=== PATIENT | male | born 1965 | race Caucasian/White ===

== ENCOUNTER 2017-09-21 12:23 | Inpatient (IN) | payer MEDICAID ==
--- NOTE | 2017-09-21 14:59 | C.PDOC ---
History Of Present Illness 52 year old male with PMHx of DM, HTN and kidney transplant presents to the ED for evaluation of left lower leg pain and redness for the past 2 months. Patient was started on clindamycin by his PMD a week ago. Patient saw him today with no improvement of his pain. Patient is immunocompromised due to his kidney transplant, patient was sent here by Dr. Leyva for IV antibiotics with plans for an I&D. Time Seen by Provider: 09/21/17 14:27 Chief Complaint (Nursing): Abnormal Skin Integrity History Per: Patient History/Exam Limitations: no limitations Onset/Duration Of Symptoms: Days Current Symptoms Are (Timing): Still Present Location Of Injury: Left: Leg (lower) Quality Of Symptoms: Other (erythema) Recent travel outside of the [place]: No Additional History Per: Patient Past Medical History Reviewed: Historical Data, Nursing Documentation, Vital Signs Vital Signs: Last Vital Signs Temp 98.4 F 09/21/17 13:04 Pulse 70 09/21/17 13:04 Resp 20 09/21/17 13:04 BP 155/79 H 09/21/17 13:04 Pulse Ox 98 09/21/17 15:03 - Medical History PMH: Diabetes, HTN Other Surgeries: Kidney transplant Family History: States: Unknown Family Hx - Social History Hx Tobacco Use: No Hx Alcohol Use: No Hx Substance Use: No - Immunization History Hx Tetanus Toxoid Vaccination: No Hx Influenza Vaccination: Yes Hx Pneumococcal Vaccination: Yes Review Of Systems Constitutional: Negative for: Fever, Chills Cardiovascular: Negative for: Chest Pain, Palpitations Respiratory: Negative for: Cough, Shortness of Breath Gastrointestinal: Negative for: Nausea, Vomiting, Abdominal Pain Musculoskeletal: Positive for: Leg Pain Skin: Negative for: Rash Neurological: Negative for: Weakness, Numbness Physical Exam - Physical Exam Appears: Non-toxic, No Acute Distress Skin: Normal Color, Warm, Dry Head: Atraumatic, Normacephalic Eye(s): bilateral: Normal Inspection Nose: No Discharge, No Deformity Oral Mucosa: Moist Neck: Normal ROM, Supple Chest: Symmetrical Cardiovascular: Rhythm Regular, No Murmur Respiratory: Normal Breath Sounds, No Rales, No Rhonchi, No Wheezing Gastrointestinal/Abdominal: Soft, No Tenderness, No Guarding, No Rebound Extremity: Normal ROM, Tenderness (mild, left lower ), No Pedal Edema, No Calf Tenderness, No Deformity, No Swelling, Other (left lower leg are erythema, superficial flaking skin, no swelling, no fluctuance, no abscess) Neurological/Psych: Oriented x3, Normal Speech, Normal Cognition Gait: Steady ED Course And Treatment O2 Sat by Pulse Oximetry: 98 (On RA) Pulse Ox Interpretation: Normal - Physician Consult Information Physician Contacted: Jason Doherty Outcome Of Conversation: Patient to be admitted to his service Medical Decision Making Medical Decision Making: Impression : left lower leg pain Plan: * Labs * Ancef IVPB Disposition - Disposition Disposition: HOSPITALIZED Disposition Time: 15:30 Condition: STABLE - POA Present On Arrival: None - Clinical Impression Clinical Impression: Cellulitis - Scribe Statement The provider has reviewed the documentation as recorded by the Scribe Gilmer Golden All medical record entries made by the Scribe were at my direction and personally dictated by me. I have reviewed the chart and agree that the record accurately reflects my personal performance of the history, physical exam, medical decision making, and the department course for this patient. I have also personally directed, reviewed, and agree with the discharge instructions and disposition.
[2017-09-21 15:24] LABS: BASO # 0.1 K/uL (0.0-0.2); BASO % 0.5 % (0.0-2.0); EOS # 0.3 K/uL (0.0-0.7); EOS % 2.4 % (0.0-4.0); HEMOGLOBIN 14.6 g/dL (12.0-18.0); LYMPH # 1.9 K/uL (1.0-4.3); LYMPH % 16.1 % (20.0-40.0); MEAN CELL VOLUME 87.6 fL (80.0-94.0); MEAN CORPUSCULAR HEMOGLOBIN 29.2 pg (27.0-31.0); MEAN CORPUSCULAR HGB CONC 33.4 g/dL (33.0-37.0); MEAN PLATELET VOLUME 10.6 fL (7.2-11.7); MONO # 0.6 K/uL (0.0-0.8); MONO % 4.8 % (0.0-10.0); NEUT # 9.2 K/uL (1.8-7.0); NEUT % 76.2 % (50.0-75.0); RBC 4.98 Mil/uL (4.40-5.90); RED CELL DISTRIBUTION WIDTH 14.6 % (11.5-14.5); WHITE BLOOD COUNT 12.1 K/uL (4.8-10.8)
[2017-09-21] MEDS ORDERED: ceFAZolin 1 GM in Sodium Chloride 0.9% 100 ML IVPB ONE (16:00)
[2017-09-21] MEDS: (Novolog) Insulin Aspart, Recombinant 100 u/ml 10 ml vial SC SCH (22:40)
[2017-09-22] MEDS: Cilostazol 100 mg Tab UD PO SCH ×4 (00:06→17:34)
[2017-09-22] MEDS: ceFAZolin IV 1 gm in Dextrose 1 GM/50 ML BAG IVPB SCH ×3 (01:37→17:33)
[2017-09-22 07:57] LABS: PROTHROMBIN TIME 11.7 SECONDS (9.7-12.2)
[2017-09-22 08:02] LABS: BASO % 0.4 % (0.0-2.0); EOS # 0.2 K/uL (0.0-0.7); EOS % 2.4 % (0.0-4.0); HEMOGLOBIN 13.5 g/dL (12.0-18.0); LYMPH # 1.9 K/uL (1.0-4.3); LYMPH % 21.5 % (20.0-40.0); MEAN CELL VOLUME 87.1 fL (80.0-94.0); MEAN CORPUSCULAR HEMOGLOBIN 29.7 pg (27.0-31.0); MEAN CORPUSCULAR HGB CONC 34.1 g/dL (33.0-37.0); MEAN PLATELET VOLUME 10.8 fL (7.2-11.7); MONO # 0.6 K/uL (0.0-0.8); MONO % 6.8 % (0.0-10.0); NEUT # 6.2 K/uL (1.8-7.0); NEUT % 68.9 % (50.0-75.0); RBC 4.53 Mil/uL (4.40-5.90); RED CELL DISTRIBUTION WIDTH 14.3 % (11.5-14.5)
[2017-09-22 08:05] LABS: ALB/GLOB RATIO 1.1 (1.0-2.1); ALBUMIN 3.6 g/dL (3.5-5.0); ALT/SGPT 32 U/L (21-72); AST/SGOT 17 U/L (17-59); BLOOD UREA NITROGEN 24 mg/dL (9-20); CALCIUM 8.8 mg/dl (8.6-10.4); GFR AFRICAN-AMERICAN > 60; GFR NON-AFRICAN AMERICAN > 60; MAGNESIUM 1.6 mg/dL (1.6-2.3)
[2017-09-22] MEDS: (Novolog) Insulin Aspart, Recombinant 100 u/ml 10 ml vial SC SCH ×7 (08:22→22:08)
--- NOTE | 2017-09-22 09:15 | RAD ---
Chest x-ray single frontal view History: Preoperative evaluation. Comparison: 02/02/2012 Findings: No focal infiltrate. Mild blunting of the left costophrenic angle may represent mild pleural thickening. Clinical correlation. Stable right hilar prominence. Tortuous aorta. Top normal heart size. Degenerative changes in the spine and shoulders. Impression No focal infiltrate.
[2017-09-22] MEDS ORDERED: (Lantus) Insulin Glargine, Recombinant SC SCH (10:00)
[2017-09-22] MEDS ORDERED: Patient's Own Medication - Tablet/Capusle PO SCH (10:00)
[2017-09-22] MEDS ORDERED: LIRAGLUTIDE 6 UNIT SC SCH (10:00)
[2017-09-22] MEDS ORDERED: Midazolam 2 MG/2 ML VIAL ONE ×2 (10:02→10:18)
[2017-09-22] MEDS ORDERED: Propofol 10 mg/ml Inj (20 ML) ONE (10:03)
[2017-09-22] MEDS: (Lantus) Insulin Glargine, Recombinant SC SCH ×2 (10:16→22:07)
[2017-09-22] MEDS ORDERED: Lidocaine 1% Inj (20ml) ONE (10:18)
[2017-09-22] MEDS ORDERED: HYDROmorphone 0.5 mg/0.5 ml ISec IVP PRN (10:34)
[2017-09-22] MEDS ORDERED: Lactated Ringer's 1,000 ML IV ONE (10:34)
[2017-09-22] MEDS: Tramadol 25 mg PO PRN ×2 (14:26→20:24)
[2017-09-22 17:25] VITALS: RESP 20
--- NOTE | 2017-09-22 19:26 | CP.PCM.PN ---
Subjective - Date & Time of Evaluation Date of Evaluation: 09/22/17 Time of Evaluation: 08:00 - Subjective Subjective: PGY [address] Gomez: Patient was seen and examined at bedside this morning. Patient with cellulitis of the left leg associated with pain, swelling and redness. He is due for the OR today for I/D. Patient failed outpatient treatment with PO clindamycin. Consult was placed for medical management. Patient with a past medical history of diabetes, hypertension, and kidney transplant. Patient denies fever/chills, chest pain, palpitation, abdominal pain, shortness of breath, N/V. Objective - Vital Signs/Intake and Output Vital Signs (last 24 hours): Temp Pulse Resp BP Pulse Ox 98.3 F 66 20 117/68 96 09/22/17 16:00 09/22/17 16:00 09/22/17 16:00 09/22/17 16:00 09/22/17 16:00 Intake and Output: 09/22/17 09/23/17 18:59 06:59 Intake Total 100 Balance 100 - Medications Medications: Current Medications Aspirin (Ecotrin) 81 mg PO DAILY [facility] Cilostazol (Pletal) 100 mg PO BID [facility] Last Admin: 09/22/17 17:34 Dose: 100 mg Clonidine HCl (Catapres) 0.1 mg PO DAILY [facility] Last Admin: 09/22/17 12:38 Dose: 0.1 mg Clonidine HCl (Catapres) 0.2 mg PO HS [facility] Last Admin: 09/22/17 00:31 Dose: 0.2 mg Clopidogrel Bisulfate (Plavix) 75 mg PO DAILY [facility] Last Admin: 09/22/17 12:38 Dose: 75 mg Docusate Sodium (Colace) 100 mg PO DAILY [facility] Last Admin: 09/22/17 10:16 Dose: Not Given Gabapentin (Neurontin) 300 mg PO BID [facility] Last Admin: 09/22/17 17:34 Dose: 300 mg Home Med (Liraglutide [Victoza 2-Jt]) 6 unit SC QAM [facility] Home Med (Patient's Own Medication) 360 tab PO BID [facility] Cefazolin Sodium/Dextrose (Ancef Iv 1 Gm Duplex) 1 gm in 50 mls @ 100 mls/hr IVPB Q8H [facility] Last Admin: 09/22/17 17:33 Dose: 100 mls/hr Insulin Aspart (Novolog) 0 unit SC ACHS [facility] PRN Reason: Protocol Last Admin: 09/22/17 17:46 Dose: Not Given Insulin Aspart (Novolog) 35 unit SC TID [facility] Last Admin: 09/22/17 17:47 Dose: Not Given Insulin Glargine (Lantus) 50 unit SC Q12 [facility] Last Admin: 09/22/17 10:16 Dose: Not Given Lisinopril (Zestril) 5 mg PO DAILY [facility] Last Admin: 09/22/17 12:38 Dose: 5 mg Metoprolol Tartrate (Lopressor) 100 mg PO DAILY [facility] Last Admin: 09/22/17 12:38 Dose: 100 mg Oxybutynin Chloride (Ditropan Tab) 5 mg PO DAILY [facility] Last Admin: 09/22/17 12:41 Dose: 5 mg Prednisone (Prednisone Tab) 5 mg PO DAILY [facility] Last Admin: 09/22/17 12:40 Dose: 5 mg Rosuvastatin Calcium (Crestor) 10 mg PO [facility] Tacrolimus (Prograf Cap) 2.5 mg PO BID [facility] Last Admin: 09/22/17 12:43 Dose: 2.5 mg Tamsulosin HCl (Flomax) 0.4 mg PO DAILY [facility] Last Admin: 09/22/17 10:16 Dose: Not Given Tramadol HCl (Ultram) 25 mg PO Q6H PRN PRN Reason: Pain, moderate (4-7) Last Admin: 09/22/17 14:26 Dose: 25 mg - Labs Labs: 09/22/17 07:56 09/22/17 07:34 PT 11.7 SECONDS (9.7-12.2) 09/22/17 07:34 INR 1.0 09/22/17 07:34 APTT 31 SECONDS (21-34) 09/22/17 07:34 - Constitutional Appears: Non-toxic, No Acute Distress - Head Exam Head Exam: ATRAUMATIC, NORMAL INSPECTION - Eye Exam Eye Exam: EOMI Pupil Exam: NORMAL ACCOMODATION - ENT Exam ENT Exam: Mucous Membranes Moist - Neck Exam Neck Exam: Normal Inspection - Respiratory Exam Respiratory Exam: Clear to Ausculation Bilateral, NORMAL BREATHING PATTERN - Cardiovascular Exam Cardiovascular Exam: REGULAR RHYTHM, +S1, +S2 - GI/Abdominal Exam GI & Abdominal Exam: Soft, Normal Bowel Sounds. absent: Distended, Firm, Guarding, Tenderness - Extremities Exam Extremities Exam: Tenderness. absent: Calf Tenderness Additional comments: mild left lower leg, erythema - Back Exam Back Exam: absent: CVA tenderness (L), CVA tenderness (R), paraspinal tenderness - Neurological Exam Neurological Exam: Alert, Awake, CN II-XII Intact, Oriented x3 Neuro motor strength exam: Left Upper Extremity: 5, Right Upper Extremity: 5, Left Lower Extremity: 5, Right Lower Extremity: 5 - Psychiatric Exam Psychiatric exam: Normal Affect, Normal Mood - Skin Skin Exam: Dry, Intact Assessment and Plan - Assessment and Plan (Free Text) Assessment: mihaitis Managment per Dr. Doherty Ancef 1gram IVPB q8 hours Tramadol 25mg PO Q6 prn main For OR today for I/D Diabetes Neurontin 300mg PO BID Lantus 50 U SC Q12 Novolog 35 U SC TID ISS hypoglycemia protocol Accuchecks ACHS Crestor 10mg PO HS Hypertension Lopressor 100mg PO daily monitor CAD/PVD Aspirin 8mg PO daily Pletal 100mg PO BID Plavix 75 mg PO daily s/p Renal Transplant Prograf 2.5 mg PO BID Prednisone 5mg PO daily avoid nephrotoxic medications Urinary retention Flomax 0.4 mg PO Daily Prophylactic measures SCD on right leg no chemical anticoagulation - management per surgery, for OR today NPO f/u am labs Discusssed with Dr. Gomez. All management and order per Dr. Gomez.
[2017-09-22] MEDS ORDERED: Dextrose 50% SYRINGE Inj (50 ml) IV PRN (19:35)
[2017-09-22] MEDS ORDERED: Glucagon Recombinant 1 mg Inj IM PRN (19:35)
--- NOTE | 2017-09-22 20:49 | OP ---
PROCEDURE DATE: 09/22/2017 PREOPERATIVE DIAGNOSIS: Abscess of the left lower extremity. POSTOPERATIVE DIAGNOSIS: Abscess of the left lower extremity. PROCEDURE PERFORMED: Incision and drainage of abscess of the left lower extremity with debridement. SURGEON: Jason Doherty MD. ANESTHESIA: General. ESTIMATED BLOOD LOSS: 40 mL. POSTOPERATIVE CONDITION: Stable. INDICATIONS FOR SURGERY: This 52-year-old male presents with cellulitis and abscess of the left leg. He was taken to the OR today for drainage. DESCRIPTION OF PROCEDURE: The patient was taken to the operating room, IV sedation was administered and the left leg was prepped and draped. Local anesthesia was infiltrated widely. An incision was made into the abscess cavity in the tibial region. The cavity was opened and explored. Bleeding was controlled using the Bovie and a larger blood vessel was repaired. The wound was irrigated with saline solution after cultures were taken. Partial tissue flap closure was performed. The central portion of the wound was packed open with saline gauze. The patient tolerated the procedure well. Returned to the recovery in stable condition. Jason Doherty MD
[2017-09-22] MEDS ORDERED: Oxycodone/Acetaminophen 5/325 mg Tab PO PRN (22:19)
[2017-09-23] MEDS: ceFAZolin IV 1 gm in Dextrose 1 GM/50 ML BAG IVPB SCH ×3 (00:50→17:38)
--- NOTE | 2017-09-23 07:28 | CP.PCM.PN ---
Subjective - Date & Time of Evaluation Date of Evaluation: 09/23/17 Time of Evaluation: 07:23 - Subjective Subjective: PGY [address] Gomez: Patient was seen and examined at bedside this morning. Nursing reports no acute events overnight. Patient states he is only in pain when he walks, but he has not needed his pain medications so far. He admits tolerating diet, denies fever/ chills, chest pain, palpitation, abdominal pain, shortness of breath, N/V. Objective - Vital Signs/Intake and Output Vital Signs (last 24 hours): Temp Pulse Resp BP Pulse Ox 98 F 70 20 139/67 96 09/22/17 23:47 09/22/17 23:47 09/22/17 23:47 09/22/17 23:47 09/22/17 23:47 Intake and Output: 09/23/17 09/23/17 06:59 18:59 Intake Total 450 Output Total 650 Balance -200 - Medications Medications: Current Medications Aspirin (Ecotrin) 81 mg PO DAILY [facility] Last Admin: 09/22/17 22:07 Dose: 81 mg Cilostazol (Pletal) 100 mg PO BID [facility] Last Admin: 09/22/17 17:34 Dose: 100 mg Clonidine HCl (Catapres) 0.1 mg PO DAILY [facility] Last Admin: 09/22/17 12:38 Dose: 0.1 mg Clonidine HCl (Catapres) 0.2 mg PO HS [facility] Last Admin: 09/22/17 22:07 Dose: 0.2 mg Clopidogrel Bisulfate (Plavix) 75 mg PO DAILY [facility] Last Admin: 09/22/17 12:38 Dose: 75 mg Dextrose (Dextrose 50% Inj) 0 ml IV STAT PRN; Protocol PRN Reason: Hypoglycemia Protocol Dextrose (Glutose 15) 0 gm PO ONCE PRN; Protocol PRN Reason: Hypoglycemia Protocol Docusate Sodium (Colace) 100 mg PO DAILY [facility] Last Admin: 09/22/17 10:16 Dose: Not Given Gabapentin (Neurontin) 300 mg PO BID [facility] Last Admin: 09/22/17 17:34 Dose: 300 mg Glucagon (Glucagen Diagnostic Kit) 0 mg IM STAT PRN; Protocol PRN Reason: Hypoglycemia Protocol Heparin Sodium (Porcine) (Heparin) 5,000 units SC Q12 [facility] Last Admin: 09/22/17 23:04 Dose: 5,000 units Home Med (Liraglutide [Victoza 2-Jt]) 6 unit SC QAM [facility] Home Med (Patient's Own Medication) 360 tab PO BID [facility] Cefazolin Sodium/Dextrose (Ancef Iv 1 Gm Duplex) 1 gm in 50 mls @ 100 mls/hr IVPB Q8H [facility] Last Admin: 09/23/17 00:50 Dose: 100 mls/hr Dextrose (Dextrose 5% In Water 1000 Ml) 1,000 mls @ 0 mls/hr IV .Q0M PRN; Protocol; Per Protocol PRN Reason: Hypoglycemia Protocol Insulin Aspart (Novolog) 0 unit SC ACHS [facility] PRN Reason: Protocol Last Admin: 09/22/17 22:08 Dose: Not Given Insulin Aspart (Novolog) 35 unit SC TID [facility] Last Admin: 09/22/17 17:47 Dose: Not Given Insulin Glargine (Lantus) 50 unit SC Q12 [facility] Last Admin: 09/22/17 22:07 Dose: 50 units Lisinopril (Zestril) 5 mg PO DAILY [facility] Last Admin: 09/22/17 12:38 Dose: 5 mg Metoprolol Tartrate (Lopressor) 100 mg PO DAILY [facility] Last Admin: 09/22/17 12:38 Dose: 100 mg Oxybutynin Chloride (Ditropan Tab) 5 mg PO DAILY [facility] Last Admin: 09/22/17 12:41 Dose: 5 mg Oxycodone/Acetaminophen (Percocet 5/325 Mg Tab) 2 tab PO Q4H PRN PRN Reason: Pain, moderate (4-7) Stop: 09/25/17 22:20 Prednisone (Prednisone Tab) 5 mg PO DAILY [facility] Last Admin: 09/22/17 12:40 Dose: 5 mg Rosuvastatin Calcium (Crestor) 10 mg PO HS [facility] Last Admin: 09/22/17 22:07 Dose: 10 mg Tacrolimus (Prograf Cap) 2.5 mg PO BID [facility] Last Admin: 09/22/17 20:24 Dose: 2.5 mg Tamsulosin HCl (Flomax) 0.4 mg PO DAILY [facility] Last Admin: 09/22/17 10:16 Dose: Not Given - Labs Labs: 09/22/17 07:56 09/22/17 07:34 PT 11.7 SECONDS (9.7-12.2) 09/22/17 07:34 INR 1.0 09/22/17 07:34 APTT 31 SECONDS (21-34) 09/22/17 07:34 - Constitutional Appears: Non-toxic, No Acute Distress - Head Exam Head Exam: ATRAUMATIC, NORMAL INSPECTION - Eye Exam Eye Exam: EOMI, Normal appearance, PERRL. absent: Scleral icterus - ENT Exam ENT Exam: Mucous Membranes Moist - Neck Exam Neck Exam: Full ROM - Respiratory Exam Respiratory Exam: Clear to Ausculation Bilateral, NORMAL BREATHING PATTERN - Cardiovascular Exam Cardiovascular Exam: REGULAR RHYTHM, +S1, +S2 - GI/Abdominal Exam GI & Abdominal Exam: Soft, Normal Bowel Sounds. absent: Tenderness - Extremities Exam Extremities Exam: absent: Normal Inspection Additional comments: Gauze bandages (recently changed) Light sensation intact Erythema decreased from admission - Back Exam Back Exam: absent: CVA tenderness (L), CVA tenderness (R) - Neurological Exam Neurological Exam: Alert, Awake, Oriented x3 - Psychiatric Exam Psychiatric exam: Normal Affect, Normal Mood - Skin Skin Exam: Normal Color, Warm Assessment and Plan - Assessment and Plan (Free Text) Plan: darinel s/p I&D Management per Dr. Doherty Ancef 1gram IVPB q8 hours (start 09/22) Percocet 5/325mg PO Q4H PRN Diabetes Neurontin 300mg PO BID Lantus 50 U SC Q12 Novolog 35 U SC TID [facility] hypoglycemia protocol Accuchecks ACHS Crestor 10mg PO HS Hypertension Well controlled Lopressor 100mg PO daily Clonidine 0.1mg PO QaM, 0.2 mg PO HS QPM monitor CAD/PVD Aspirin 8mg PO daily Pletal 100mg PO BID Plavix 75 mg PO daily s/p Renal Transplant Prograf 2.5 mg PO BID Prednisone 5mg PO daily avoid nephrotoxic medications Urinary retention Flomax 0.4 mg PO Daily Prophylactic measures SCD on right leg heparin 5000u SC Q12H NPO Discusssed with Dr. Gomez. All management and order per Dr. Gomez.
[2017-09-23] MEDS: (Novolog) Insulin Aspart, Recombinant 100 u/ml 10 ml vial SC SCH ×7 (08:34→22:30)
[2017-09-23] MEDS: (Lantus) Insulin Glargine, Recombinant SC SCH ×2 (11:00→22:29)
[2017-09-23] MEDS: Cilostazol 100 mg Tab UD PO SCH ×2 (11:03→17:40)
[2017-09-23 23:50] VITALS: O2SAT 96
[2017-09-24] MEDS: ceFAZolin IV 1 gm in Dextrose 1 GM/50 ML BAG IVPB SCH ×2 (01:29→08:54)
[2017-09-24 08:41] LABS: BASO # 0.1 K/uL (0.0-0.2); BASO % 0.8 % (0.0-2.0); EOS # 0.3 K/uL (0.0-0.7); LYMPH # 2.6 K/uL (1.0-4.3); LYMPH % 31.3 % (20.0-40.0); MEAN CELL VOLUME 86.4 fL (80.0-94.0); MEAN CORPUSCULAR HEMOGLOBIN 29.4 pg (27.0-31.0); MEAN PLATELET VOLUME 10.9 fL (7.2-11.7); MONO # 0.6 K/uL (0.0-0.8); MONO % 6.8 % (0.0-10.0); NEUT # 4.8 K/uL (1.8-7.0); NEUT % 57.1 % (50.0-75.0); RBC 4.44 Mil/uL (4.40-5.90); RED CELL DISTRIBUTION WIDTH 14.2 % (11.5-14.5); WHITE BLOOD COUNT 8.4 K/uL (4.8-10.8)
[2017-09-24] MEDS: (Novolog) Insulin Aspart, Recombinant 100 u/ml 10 ml vial SC SCH ×4 (08:52→14:23)
[2017-09-24 09:14] LABS: ALB/GLOB RATIO 1.1 (1.0-2.1); ALBUMIN 3.4 g/dL (3.5-5.0); ALT/SGPT 15 U/L (21-72); AST/SGOT 19 U/L (17-59); BLOOD UREA NITROGEN 25 mg/dL (9-20); CALCIUM 8.8 mg/dl (8.6-10.4); GFR AFRICAN-AMERICAN > 60; GFR NON-AFRICAN AMERICAN > 60; MAGNESIUM 1.6 mg/dL (1.6-2.3)
[2017-09-24] MEDS: (Lantus) Insulin Glargine, Recombinant SC SCH (10:17)
[2017-09-24] MEDS: Cilostazol 100 mg Tab UD PO SCH (10:19)
[2017-09-24 15:07] VITALS: BP 151/69; PULSE 80; TEMP 97.7
== END 2017-09-24 18:00 | disposition home or self-care (01) | DRG 277 ==
LOC: C.ER 12:23 → C.9E 14:38 → C.3T 20:02
PROVIDERS: ADMIT Surgery; ATTEND Surgery
PROC: 0H9LXZZ Drainage of Left Lower Leg Skin, External Approach (ICD-10-PCS; principal; 2017-09-22 09:30)
DX: L02.416 Cutaneous abscess of left lower limb (principal); E11.51 Type 2 diabetes mellitus with diabetic peripheral angiopathy without gangrene; Z94.0 Kidney transplant status; Z79.4 Long term (current) use of insulin; I10 Essential (primary) hypertension; L03.116 Cellulitis of left lower limb; Z79.02 Long term (current) use of antithrombotics/antiplatelets; Z79.82 Long term (current) use of aspirin; Z79.899 Other long term (current) drug therapy